=== PATIENT | female | born 1980 | race Caucasian/White ===

== ENCOUNTER 2016-11-26 17:16 | Inpatient (IN) | payer OTHER ==
[~2016-11-26] VITALS: Ht 160 cm; Wt 68.0 kg
[2016-11-26] MEDS ORDERED: OXYTOCIN 30 UNITS IN 0.9% NaCl 500ML IV BAG (J2590) As Ordered ONE (17:45)
[2016-11-26] MEDS ORDERED: PRENTAB9 PO (18:04)
[2016-11-26] MEDS ORDERED: OXYTOCIN DRIP 30 UNITS in APPROPRIATE DILUENT 1 EA IV SCH (19:08)
[2016-11-26] MEDS ORDERED: DOCUSATE SODIUM 100 MG CAP PO PRN (19:15)
[2016-11-26] MEDS ORDERED: ONDANSETRON 4MG/2ML VIAL (J2405) IV PRN (19:15)
[2016-11-26] MEDS ORDERED: ACETAMINOPHEN 500 MG TAB PO PRN (19:15)
[2016-11-26] MEDS ORDERED: MOM 30ML SUSPENSION UDC PO PRN (19:15)
[2016-11-26] MEDS ORDERED: PROMETHAZINE 25 MG TAB PO PRN (19:15)
[2016-11-26] MEDS ORDERED: DIBUCAINE 1% OINTMENT 30GM TOP PRN (19:15)
--- NOTE | 2016-11-26 19:22 | DNPDOC ---
[facility] Delivery Note Delivery Note DATE OF DELIVERY: Nov 26, 2016 at 1749 PREDELIVERY DIAGNOSIS: 39+3 weeks' gestation and labor. POST DELIVERY DIAGNOSIS: Delivered. PROCEDURE: GREEN ENERGY MARKETING ANALYST: Mely Longoria CNM ANESTHESIA: none ESTIMATED BLOOD LOSS: 350 mL. FINDINGS: female , Score 9/9 DELIVERY SUMMARY: Patient is a 35 year-old who was admitted to labor and delivery for active labor. Progressed to c/c/+3 with an uncontrolable desire to push within minutes of arriving to L&D. Meconium was noted shortly after arrival. Delivery was via of a viable female to a clean field ; the infant presented occiput anterior with compound right hand, no nuchal cord noted; anterior shoulder(left) delivered with mild downward traction, then the posterior shoulder delivered with mild upward traction; remainder of corpus delivered spontaneously; cord clamped x 2 and cut by myself. Infant had vigorous cry and was placed on mothers abdomen. Bulb suction was performed and initial cleaning completed. pitocin was started with delivery of the anterior shoulder; 3 vessel cord and normal placenta were delivered without complications approx 5 minutes later; fundal massage was applied and vaginal vault was swept for clots; vagina and perineum examined; 2MLL and bilat labial lacerations, repaired in the usual fashion. Fundus firm at U-1. ACN=945 ml, Infant had 9/9; mother and infant are bonding well and were stable in the delivery room; anticipate routine PP course for mother. Mother was GBS positive. Not treated with antibiotic d/t imminent delivery on arrival. Delivering Provider: LOUIE Bella KELLI C. CNM Nov 26, 2016 19:22
--- NOTE | 2016-11-26 19:36 | IPNPDOC ---
Text Note Date of Service The patient was seen on 11/26/16. NOTE HISTORY AND PHYSICAL-Entry after delivery d/t imminent delivery on the patients arrival. [id number] @ 1925 35 yo G1 @ 39+3 2nd trimester US done on [id number] presented to L&D with c/o CTX and SROM. Denies DFM and VB. GBS positive. S: She is very uncomfortable and pushing. States she can't stop herself from pushing. Spouse and mother are at bedside. O: VS- severe range BP noted shortly after delivery FHR- Variables noted shortly after arrival CTX- Q 2-3 min, lasting < 90 sec, palpated as strong SVE- not performed. head visualized, meconium noted in hair SROM- shortly before arrival to L&D MEDS- PNV, probiotic, Calcium NKDA PMH- PCOS PSH- bilat ACL repair (); Lasix (2010); [place] teeth (2009) STDs- Denies hx SLOT EDITOR- Denies hx Denies abuse Denies hx depression/anxiety/SI/HI Lives off-post with AD spouse who is currently DCS at [employer] [facility]- O positive, Hep B- NR, RPR- NR, Rubella- immune, Varicella- immune, Gonorrhea and Chlamydia- negative, GBS positive GBS positive- not treated d/t imminent delivery on arrival. IV access obtained moments before delivery A: 35 yo G1 presents @ 39+3 in active labor with imminent delivery. CAT II FHR tracing P: of female infant-see delivery summary KATHY INGRAM CNM Nov 26, 2016 19:36
[2016-11-26] MEDS: IBUPROFEN 800 MG TAB PO PRN (20:02)
[2016-11-26 21:15] VITALS: BP 126/70
[2016-11-27] MEDS: IBUPROFEN 800 MG TAB PO PRN ×2 (06:23→21:19)
[2016-11-27 06:28] VITALS: BP 113/57
--- NOTE | 2016-11-27 07:02 | IPNPDOC ---
Text Note Date of Service The patient was seen on 11/27/16. NOTE PPD1 prog note States feeling well, no complaints. No heavy VB. Pain controlled. Voiding, ambulatory. Bonding well and breast feeding well. VSSAF CTAB RRR Ut at U-1, firm Ext no CCE a/p: Doing well. Routine PP care. Sessions VS,Lucila, I+O VSLucila, I+O Vital Signs Date Time Temp Pulse Resp B/P (MAP) Pulse Ox O2 Delivery O2 Flow Rate FiO2 11/27/16 06:28 97.9 53 16 113/57 (75) 11/26/16 21:15 Room Air I&O- Last 24 Hours up to 6 AM 11/27/16 06:00 Intake Total 240 ml Output Total 1150 ml Balance -910 ml SESSIONS,ALMA Preston MD Nov 27, 2016 07:02
[2016-11-27] MEDS: PRENATAL VITAMINS CHEWABLE TABLET PO SCH (07:53)
[2016-11-27 18:02] VITALS: BP 104/58
[2016-11-28 06:15] VITALS: BP 96/52
[2016-11-28] MEDS: PRENATAL VITAMINS CHEWABLE TABLET PO SCH (08:26)
[2016-11-28] MEDS ORDERED: ACET50TA PO (10:02)
[2016-11-28] MEDS ORDERED: MOM30SS PO (10:02)
[2016-11-28] MEDS ORDERED: DIBU1OIN TOP (10:02)
[2016-11-28] MEDS ORDERED: COLA100C5 PO (10:02)
[2016-11-28] MEDS ORDERED: IBUP-1114 PO (10:02)
[2016-11-28 18:49] VITALS: BP 114/67
--- NOTE | 2016-11-28 19:26 | DSES ---
DATE OF ADMISSION: 11/26/2016 DATE OF DISCHARGE: 11/28/2016 This lady is a 35-year-old, 1, now para 2 admitted in active labor, precipitously delivered a live female infant, 6 pounds 3 ounces, 2806 grams, scores of 9 and 9 at one and five minutes, respectively. She had bilateral labial lacerations that were repaired by the form drafter. She is group B streptococcus (GBS) positive and was not treated in time. Baby is being observed. On discharge, day #2, we discussed phlebitis, cystitis, mastitis, endometritis, and cellulitis; diet, exercise; pain management; perineal, breast, and wound care. No lab work was ordered, nor was any done. Her vital signs on discharge, her blood pressure is 96/52, respirations 18, pulse 54, temperature is 97.1. The rest of the examination is unremarkable. She is normocephalic, atraumatic. Neck full range of motion. Pupils equal and reactive to light. Distal pulses are symmetric. No evidence of deep venous thrombosis (DVT), pulmonary embolism (PE), or superficial phlebitis. No pedal edema, and no abnormal reflexes. Chest is clear bilaterally to bases. No wheezes or rhonchi. No costovertebral angle (CVA) tenderness. Uterus is nontender, 2 below. Four quadrant bowel sounds are noted. Perineum is healing. No rashes, lesions, or pruritus. No arthralgia, myalgia. No complaints of cough, wheezes, shortness of breath, or dyspnea on exertion. No chest pain. No bleeding. Neurologically complete. No incontinence, urgency, or frequency. No nausea, vomiting, diarrhea, constipation. No diabetic issues. 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 PAST MEDICAL HISTORY AND SURGICAL: Unremarkable. FAMILY HISTORY: Is noncontributory. She does not smoke or drink or abuse drugs. She is to a soldier, and there is no domestic violence. IN SUMMARY: We have a term gestation admitted, precipitously delivered a live female, discharged with medications. Followup in 6 weeks' time at the clinic for check. Edited: [facility] 11/29/2016 [id number]
== END 2016-11-28 20:34 | disposition home or self-care (01) | DRG 775 ==
LOC: M LDO 17:16 → M LDI 17:44 → M OBS 20:45
PROVIDERS: ADMIT Midwife; ATTEND Midwife
PROC: 10E0XZZ Delivery of Products of Conception, External Approach (ICD-10-PCS; principal; 2016-11-26)
PROC: 0KQM0ZZ Repair Perineum Muscle, Open Approach (ICD-10-PCS; 2016-11-26)
DX: O62.3 Precipitate labor (principal); O32.6XX0 Maternal care for compound presentation, not applicable or unspecified; Z3A.39 39 weeks gestation of pregnancy; O70.1 Second degree perineal laceration during delivery; O99.824 Streptococcus B carrier state complicating childbirth; Z37.0 Single live birth